=== PATIENT | male | born 1945 | race Caucasian/White ===

== ENCOUNTER 2020-08-05 11:43 | Outpatient (CLI) | payer MEDICARE, OTHER, SELFPAY ==
[2020-08-05 12:06] LABS: Hemoglobin 7.2 g/dL (11.7-16.6); Mean Corpuscular HGB Conc 31.3 g/dL (30.0-36.0); Mean Corpuscular Hemoglobin 29.3 pg (28.0-34.0); Mean Corpuscular Volume 93.5 fL (80-94); Mean Platelet Volume 11.6 fL (7.4-10.4); Platelet Count 48 10^3/cmm (130-400); Red Blood Count 2.46 10^6/uL (4.1-5.3); Red Cell Distribution Width 17.5 % (12.1-15.1); White Blood Count 15.9 10^3/uL (4.0-10.0)
[2020-08-05 12:45] LABS: Alanine Aminotransferase 11 U/L (0-41); Albumin Level 3.6 g/dL (3.5-5.2); Alkaline Phosphatase 107 IU/L (40-130); Aspartate Amino Transferase 9 U/L (0-40); Blood Urea Nitrogen 19 mg/dL (8-23); Calcium 8.1 mg/dL (8.5-10.5); Carbon Dioxide 25 mmol/L (22-29); Chloride 98 mmol/L (98-107); Globulin 2.2 g/dL (1.3-4.6); Glucose 138 mg/dL (65-115); Lactate Dehydrogenase 214 U/L (135-225); Osmolality Calculated 282 mOsm/kg (285-295); Sodium 134 mmol/L (136-145); Total Bilirubin 0.4 mg/dL (0.15-1.2); Total Protein 5.8 g/dL (6.6-8.7)
[2020-08-05 14:41] LABS: Slide Review Slide Review Perform
[2020-08-05 14:42] LABS: Absolute Segmented Neutrophil 2.9 10/cmm (1.6-7.1); Band Neutrophils Absolute 0.2 10^3/cmm (0.0-1.2); Eosinophils 0 %; Lymphocytes 36 %; Lymphocytes Absolute 6.2 10^3/cmm (1.2-3.4); Monocytes Absolute 6.7 10^3/cmm (0.1-0.6); Platelet Estimate Decreased (Normal); Segmented Neutrophils 18 %; Total Cells Counted 100 (0-100)
[2020-08-05 14:43] LABS: Anisocytosis 2+; Microcytosis 1+; Pathology Refferal Yes; Smudge Cells 1+
[2020-08-09 10:19] LABS: Miscellaneous Test See Scanned Lab Rpt
== END 2020-08-05 11:44 | disposition home or self-care (01) ==
LOC: LAB 11:51
PROVIDERS: Visit Provider Internal Medicine Hematology & Oncology
DX: C92.00 Acute myeloblastic leukemia, not having achieved remission (principal)
CPT/HCPCS: 80053; 80500; 83615; 84550; 85007; 85025; 88184; 88185